=== PATIENT | female | born 1965 | race Hispanic/Latino ===

== ENCOUNTER 2023-02-10 14:57 | Emergency (ER) | payer OTHER ==
[2023-02-10] MEDS ORDERED: Ketorolac Tromethamine 30 MG/ML VIAL ONE (15:44)
[2023-02-10] MEDS ORDERED: Acetaminophen 500 MG TAB ONE (18:20)
== END 2023-02-10 18:24 | disposition home or self-care (01) ==
LOC: ERS 14:57
DX: M70.42 Prepatellar bursitis, left knee (principal); M17.12 Unilateral primary osteoarthritis, left knee; F17.210 Nicotine dependence, cigarettes, uncomplicated
CPT/HCPCS: 96372; J1885